=== PATIENT | male | born 1980 | race Caucasian/White ===

== ENCOUNTER 2018-01-01 09:59 | Emergency (ER) | payer SELFPAY | END 2018-01-01 11:08 | disposition home or self-care (01) | LOC: E/R 09:59 | DX: S93.601A Unspecified sprain of right foot, initial encounter (principal); X58.XXXA Exposure to other specified factors, initial encounter; Y92.9 Unspecified place or not applicable | CPT/HCPCS: 73630; 73630-LT; 99283-25 ==